=== PATIENT | female | born 1985 | race Caucasian/White ===

== ENCOUNTER 2018-11-26 15:59 | Emergency (ER) | payer OTHER ==
[~2018-11-26] VITALS: Ht 170.2 cm; Wt 63.5 kg
[~2018-11-26 15:59] MED LIST: GILTUSS TR TAB1 EACH PO
== END 2018-11-26 17:39 | disposition home or self-care (01) ==
LOC: ER 15:59
DX: M62.838 Other muscle spasm (principal)

== ENCOUNTER 2019-05-01 17:55 | Emergency (ER) | payer OTHER ==
[~2019-05-01] VITALS: Ht 170.2 cm; Wt 64.9 kg
[2019-05-01] MEDS ORDERED: VISTARIL50 MG PO (20:03)
[2019-05-01] MEDS ORDERED: CLONAZEPAM1 MG PO (20:03)
== END 2019-05-01 20:20 | disposition home or self-care (01) ==
LOC: ER 17:55
DX: M62.830 Muscle spasm of back (principal); F06.4 Anxiety disorder due to known physiological condition